=== PATIENT | male | born 2000 | race African-American/Black ===

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

== ENCOUNTER 2018-07-26 02:48 | Emergency (ER) | payer SELFPAY ==
[~2018-07-26] VITALS: Ht 195.6 cm; Wt 111.4 kg
[~2018-07-26 02:48] MED LIST: FLEXERIL 1010 MG/TAB PO
[2018-07-26 02:51] VITALS: BP 131/71; TEMP 97.9
[2018-07-26] MEDS ORDERED: PROAIR HFA0.09 MG/AC IH ×2 (03:10→03:32)
[2018-07-26 04:33] VITALS: PULSE 80
== END 2018-07-26 04:33 | disposition home or self-care (01) ==
LOC: COL.ER 02:48
DX: J45.909 Unspecified asthma, uncomplicated (principal)

== ENCOUNTER → 2018-09-26 | Outpatient (CLI) | payer OTHER ==
[~2018-09-26] MED LIST changes: +PROAIR HFA0.09 MG/AC IH
== END ==
LOC: COL.PUL 09-19 11:30
DX: J45.909 Unspecified asthma, uncomplicated (principal)

== ENCOUNTER → 2018-11-21 | Outpatient (CLI) | payer OTHER | LOC: COL.PUL 10:00 | DX: J45.30 Mild persistent asthma, uncomplicated (principal) | CPT/HCPCS: J7674 ==

== ENCOUNTER 2019-01-25 18:32 | Emergency (ER) | payer OTHER ==
[~2019-01-25] VITALS: Ht 195.6 cm; Wt 111.4 kg
[2019-01-25 18:37] VITALS: BP 152/81; TEMP 98.5
[2019-01-25] MEDS ORDERED: NORCO 325 MG-51 TAB PO (19:18)
[2019-01-25 19:51] VITALS: PULSE 90
== END 2019-01-25 19:51 | disposition home or self-care (01) ==
LOC: COL.ER 18:32
DX: S92.352A Displaced fracture of fifth metatarsal bone, left foot, initial encounter for closed fracture (principal); W51.XXXA Accidental striking against or bumped into by another person, initial encounter; Y93.67 Activity, basketball
CPT/HCPCS: Q4045